=== PATIENT | female | born 1955 | race American Indian/Alaskan Native ===

== ENCOUNTER 2016-10-17 17:43 | Emergency (ER) | payer OTHER ==
[2016-10-17 18:11] VITALS: BP 154/90
[2016-10-17] MEDS ORDERED: NORCO 5/325 PO ONE (20:34)
--- NOTE | 2016-10-17 20:40 | Emergency Department Report ---
ED Fall HPI - General Chief Complaint: Fall Stated Complaint: FALL,BACK PAIN Time Seen by Provider: 10/17/16 20:33 Source: patient Mode of arrival: Ambulatory - History of Present Illness Initial Comments: 61-year-old female past medical history hypertension presents with complaint of left-sided rib pain and lower back pain status post mechanical fall down stairs at home yesterday. Patient denies any loss of consciousness, no head or neck trauma. State she slipped going down steps fell backward onto the lower back and left side. Patient complaining of pain in her left flank region by posterior axillary line/costal margin. Patient denies any shortness of breath no chest pain no abdominal pain no nausea no vomiting. States she took Motrin with minimal relief at home. No lacerations. Patient is fully ambulatory without any assistance. MD Complaint: fall Onset/Timin -: days(s) Fall From: down stairs (#) (2) Fall Witnessed: no Place Fall Occurred: home Loss of Consciousness: none Prolonged Down Time?: no Symptoms Prior to Fall: none Location: back Severity: moderate Severity scale (0 -10): 6 Quality: aching Context: tripped/slipped Associated Symptoms: denies - Related Data Previous Rx's Medication Instructions Recorded Last Taken Type Naproxen [Naproxen TAB] 250 mg PO BID PRN #20 tablet 10/17/16 Unknown Rx Allergies Allergy/AdvReac Type Severity Reaction Status Date / Time No Known Allergies Allergy Unverified 03/05/14 10:51 ED Review of Systems ROS: Stated complaint: FALL,BACK PAIN Other details as noted in HPI Constitutional: denies: chills, fever Eyes: denies: eye pain, eye discharge, vision change ENT: denies: ear pain, throat pain Respiratory: denies: cough, shortness of breath, wheezing Cardiovascular: denies: chest pain, palpitations Endocrine: no symptoms reported Gastrointestinal: denies: abdominal pain, nausea, diarrhea Genitourinary: denies: urgency, dysuria, discharge Musculoskeletal: as per HPI, back pain (mild paraspinal lower back pain, pain posterior axillary line). denies: joint swelling, arthralgia Skin: denies: rash, lesions Neurological: denies: headache, weakness, paresthesias Psychiatric: denies: anxiety, depression Hematological/Lymphatic: denies: easy bleeding, easy bruising ED Past Medical Hx - Past Medical History Hx Hypertension: Yes - Surgical History Past Surgical History?: Yes Additional Surgical History: - Social History Smoking Status: Never Smoker Substance Use Type: None - Medications Home Medications: Home Medications Medication Instructions Recorded Confirmed Last Taken Type Naproxen [Naproxen TAB] 250 mg PO BID PRN #20 tablet 10/17/16 Unknown Rx ED Physical Exam - General Limitations: No Limitations General appearance: alert, in no apparent distress - Head Head exam: Present: atraumatic, normocephalic - Eye Eye exam: Present: normal appearance, PERRL, EOMI - ENT ENT exam: Present: mucous membranes moist - Neck Neck exam: Present: normal inspection - Respiratory Respiratory exam: Present: normal lung sounds bilaterally, chest wall tenderness (reproducible pain along posterior axillary line near lower ribs.). Absent: respiratory distress - Cardiovascular Cardiovascular Exam: Present: regular rate, normal rhythm. Absent: systolic murmur, diastolic murmur, rubs, gallop - GI/Abdominal GI/Abdominal exam: Present: soft, normal bowel sounds - Extremities Exam Extremities exam: Present: normal inspection - Back Exam Back exam: Present: normal inspection, tenderness, paraspinal tenderness (mild paraspinal tenderness L spine no midline tenderness CT or L-spine.) - Neurological Exam Neurological exam: Present: alert, oriented X3, CN II-XII intact, normal gait - Psychiatric Psychiatric exam: Present: normal affect, normal mood - Skin Skin exam: Present: warm, dry, intact, normal color. Absent: rash ED Course Vital Signs 10/17/16 18:04 Temperature 98.0 F Pulse Rate 66 Respiratory 16 Rate Blood Pressure 154/90 O2 Sat by Pulse 100 Oximetry ED Medical Decision Making - Medical Decision Making A/P: Mechanical fall, musculoskeletal pain 1-x-ray L-spine and x-ray ribs shows no fractures. 2-patient fully ambulatory without any assistance. No Midline spinal tenderness CT or L-spine. Fully disrobe for exam, no signs of ecchymosis on trunk and back hips. 3-naproxen when necessary for pain 4-primary care doctor follow-up this week Critical care attestation.: If time is entered above; I have spent that time in minutes in the direct care of this critically ill patient, excluding procedure time. ED Disposition Clinical Impression: Musculoskeletal pain Fall on stairs Qualifiers: Encounter type: initial encounter Qualified Code(s): W10.8XXA - Fall (on) (from ) other stairs and steps, initial encounter Disposition: DISCHARGED TO HOME OR SELFCARE Is pt being admited?: No Does the pt Need Aspirin: No Condition: Stable Instructions: Musculoskeletal Pain (ED) Prescriptions: Naproxen [Naproxen TAB] 250 mg PO BID PRN #20 tablet PRN Reason: Pain Referrals: PRIMARY CARE, [Primary Care Provider] - 3-5 Days MALU SCHULZ MD [Staff Physician] - 3-5 Days [facility] [Outside] - 3-5 Days Time of Disposition: 21:34
--- NOTE | 2016-10-17 21:25 | XRay Report ---
FINAL REPORT EXAM: XR RIBS UNI W PA CHEST 3 LT HISTORY: s/p fall ? left side rib fracture COMPARISON: None available. FINDINGS: Six total images of the chest and left ribs obtained. Heart normal in size. Lungs are clear. No pneumothorax. No step-off deformities identified along the left ribs. No discrete fracture line. Nondisplaced fracture may not be apparent by plain film. IMPRESSION: Lungs are clear. Left ribs are grossly intact.
--- NOTE | 2016-10-17 21:25 | XRay Report ---
FINAL REPORT EXAM: XR SPINE LUMBOSACRAL 2-3V HISTORY: s/p fall ? fracture, LBP COMPARISON: None available. FINDINGS: Three views of the lumbar spine obtained. Lumbar vertebral body heights are preserved. Mild endplate osteophyte at several levels. Disc heights are preserved. Pedicles are intact. Mild hypertrophic facet changes L5-S1 level. IMPRESSION: Mild degenerative changes. Lumbar vertebral body heights are preserved.
== END 2016-10-17 21:34 | disposition home or self-care (01) ==
LOC: ED 17:43
DX: M79.1 Myalgia (principal); I10 Essential (primary) hypertension; W10.8XXA Fall (on) (from) other stairs and steps, initial encounter; Y93.9 Activity, unspecified; Y92.9 Unspecified place or not applicable; Y99.9 Unspecified external cause status
CPT/HCPCS: 72100